=== PATIENT | male | born 1965 | race Caucasian/White ===

== ENCOUNTER 2019-07-13 11:05 | Inpatient (IN) | payer BC, MEDICARE ==
[~2019-07-13] VITALS: Ht 175.3 cm; Wt 84.1 kg
[~2019-07-13 11:05] MED LIST: CARSR60C PO; FLEC50TA10 PO
[2019-07-13 12:17] LABS: BASOPHILS % (AUTO) 0.2 % (0-1); EOSINOPHILS % (AUTO) 0 % (0-6); HEMATOCRIT 46.4 % (42.0-52.0); LYMPHOCYTES # (AUTO) 0.1 X10'3 (1.1-4.8); MEAN CORPUSCULAR HEMOGLOBIN 32.6 PG (27.0-31.0); MEAN CORPUSCULAR HGB CONC 34.4 g/dL (33.0-36.5); MEAN CORPUSCULAR VOLUME 94.7 FL (78-98); MEAN PLATELET VOLUME 7.5 FL (7.4-10.4); MONOCYTES # (AUTO) 0.1 X10'3 (0-0.9); MONOCYTES % (AUTO) 1.9 % (2-12); NEUTROPHILS # (AUTO) 6.3 X10'3 (1.8-7.7); NEUTROPHILS % (AUTO) 95.9 % (42-75); PLATELET COUNT 100 X10'3 (140-440); RED CELL DISTRIBUTION WIDTH 12.7 % (11.5-14.5); WHITE BLOOD COUNT 6.6 X10'3 (4.5-11.0)
[2019-07-13 12:29] LABS: ALANINE AMINOTRANSFERASE 44 U/L (12-78); ALBUMIN 3.4 G/DL (3.4-5.0); ALBUMIN/GLOBULIN RATIO 0.8 (1.1-1.5); ALKALINE PHOSPHATASE 68 IU/L (46-116); ANION GAP 10 (8-16); ASPARTATE AMINO TRANSFERASE 39 U/L (10-37); BILIRUBIN,TOTAL 3.2 MG/DL (0.1-1.0); BLOOD UREA NITROGEN 13 MG/DL (7-18); BUN/CREATININE RATIO 12.7 (5.4-32.0); CALCIUM 8.7 MG/DL (8.5-10.1); CHLORIDE 102 MMOL/L (99-107); CREATININE 1.02 MG/DL (0.60-1.10); GLUCOSE 124 MG/DL (70-104); LIPASE 66 U/L (73-393); SODIUM 136 MMOL/L (135-145); TOTAL PROTEIN 7.7 G/DL (6.4-8.2); eGFR 76 ML/MIN
[2019-07-13 12:37] LABS: CLARITY,URINE SLIGHTLY CLOUDY (Clear); COLOR,URINE AMBER (Yellow); GLUCOSE, URINE NEGATIVE (Neg); KETONES,URINE 15 mg/dl (Neg); LEUKOCYTE ESTERASE ,URINE NEGATIVE (Neg); NITRITES, URINE NEGATIVE (Neg); OCCULT BLOOD,URINE MODERATE (Neg); PROTEIN,URINE 100 mg/dl (Neg); UROBILINOGEN,URINE >=8.0 E.U/dL (0.2-1.0)
[2019-07-13 12:43] LABS: UA COLLECTION TYPE CLN CATCH MIDSTREAM
[2019-07-13 12:45] LABS: MUCUS STRANDS MANY /LPF (Neg); SQUAMOUS EPITHELIAL CELL,UR FEW /LPF (FEW); TRANSITIONAL EPI CELLS,URINE FEW /HPF
[2019-07-13 12:46] LABS: BACTERIA,URINE NONE SEEN /HPF (Neg); RBC,URINE 20-50 /HPF (0-2); RENAL CELLS, URINE FEW /HPF; WBC,URINE 0-4 /HPF (0-4)
[2019-07-13 12:47] LABS: C-REACTIVE PROTEIN 31.62 MG/DL (0.0-0.5); POTASSIUM 3.6 MMOL/L (3.5-5.1)
[2019-07-13] MEDS ORDERED: normal saline 1000ML IV soln IVB ONE (13:10)
[2019-07-13] MEDS ORDERED: iohexol 300mg/ml 100ml inj. ONE (13:39)
[2019-07-13] MEDS ORDERED: ondansetron/PF 4mg/2ml inj IV ONE (13:55)
[2019-07-13] MEDS ORDERED: vancomycin/NS 1 GM ADD-VANTAGE 250 ML IV ONE (15:00)
[2019-07-13] MEDS ORDERED: piperacillin/tazo 3.375gm/50ml 50 ML IV ONE (15:00)
[2019-07-13] MEDS ORDERED: ringers solution, lactated 1000ml IV soln IV ONE (15:00)
[2019-07-13] MEDS ORDERED: NO HOME MEDS (15:34)
[2019-07-13] MEDS ORDERED: magnesium hydroxide 30ml (MOM) UD suspension PO PRN (16:00)
[2019-07-13] MEDS ORDERED: magnesium 4gm in 100ml NS 100 ML IV PRN (16:00)
[2019-07-13] MEDS ORDERED: diphenhydrAMINE 50 mg/ml inj IV PRN (16:00)
[2019-07-13] MEDS ORDERED: HYDROcodone/acetaminophen 5mg/325mg tablet PO PRN (16:00)
[2019-07-13] MEDS ORDERED: diphenhydrAMINE 25mg capsule PO PRN (16:00)
[2019-07-13] MEDS ORDERED: bisacodyl 10mg suppository rectal RC PRN (16:00)
[2019-07-13] MEDS ORDERED: metoclopramide 5 mg/ml inj IV PRN (16:00)
[2019-07-13] MEDS ORDERED: acetaminophen 325mg tablet PO PRN ×2 (16:00)
[2019-07-13] MEDS ORDERED: magnesium 2GM in 50ml NS 50 ML IV PRN (16:00)
[2019-07-13] MEDS ORDERED: potassium Cl 20 mEq SR tablet PO PRN (16:00)
[2019-07-13] MEDS ORDERED: morphine 2 MG/ML inj. syringe IV PRN ×2 (16:00)
[2019-07-13] MEDS: piperacillin/tazo 3.375gm/50ml 50 ML IV SCH ×2 (16:00→23:20)
[2019-07-13] MEDS ORDERED: acetaminophen 650mg rectal suppository RC PRN (16:00)
[2019-07-13] MEDS ORDERED: magnesium Cl slow-release 64mg tablet PO PRN (16:00)
[2019-07-13] MEDS ORDERED: mag hydrox/Alum hydrox/simeth 30ml oral suspension PO PRN (16:00)
[2019-07-13] MEDS ORDERED: potassium CL 10mEq/100ml bag 100 ML IV PRN ×2 (16:00)
[2019-07-13] MEDS ORDERED: morphine 4 MG/ML inj SYRINge IV ONE (16:05)
[2019-07-13] MEDS: HYDROcodone/acetaminophen 10/325mg tab PO PRN ×2 (16:28→23:30)
[2019-07-13 16:29] LABS: HEMOGLOBIN A1C 5.1 % (4.5-6.2)
[2019-07-13] MEDS: dextrose 5%-normal saline 1,000 ML IV SCH ×2 (17:54→23:20)
--- NOTE | 2019-07-13 18:00 | NUR ---
Problems reprioritized. Patient report given, questions answered & plan of care reviewed with DENA Kirk.
[2019-07-13 18:10] VITALS: BP 119/78
--- NOTE | 2019-07-13 18:22 | NUR ---
Received report from DENA Marcelo. Patient awake and alert on room air, in no apparent distress. Call light and items of frequent use within reach. Will continue to monitor.
--- NOTE | 2019-07-13 18:25 | NUR ---
MD Colleen at bedside.
[2019-07-13] MEDS: K and/or MAG REPLACEMENT MC SCH (19:05)
[2019-07-13] MEDS: heparin, porcine 5000 units/ml vial SQ SCH (19:33)
[2019-07-13] MEDS: pantoprazole 40 MG vial IV SCH (19:33)
[2019-07-13 20:00] VITALS: BP 100/61
[2019-07-13] MEDS ORDERED: temazepam 15mg capsule PO PRN (21:00)
[2019-07-14] VITALS: BP 94/61
[2019-07-14] MEDS: VANCOmycin 1250MG/NS 250ml Bag 250 ML IV SCH ×2 (03:33→15:10)
--- NOTE | 2019-07-14 06:08 | NUR ---
Problems reprioritized. Patient report given, questions answered & plan of care reviewed with DENA Zuleta.
--- NOTE | 2019-07-14 06:08 | NUR ---
Patient in room [facility]. I have received report from DENA CARMICHAEL and had the opportunity to ask questions and assume patient care.
[2019-07-14 06:27] LABS: ALANINE AMINOTRANSFERASE 32 U/L (12-78); ALBUMIN 2.4 G/DL (3.4-5.0); ALBUMIN/GLOBULIN RATIO 0.8 (1.1-1.5); ALKALINE PHOSPHATASE 56 IU/L (46-116); ANION GAP 4 (8-16); ASPARTATE AMINO TRANSFERASE 27 U/L (10-37); BILIRUBIN,TOTAL 1.8 MG/DL (0.1-1.0); BLOOD UREA NITROGEN 12 MG/DL (7-18); BUN/CREATININE RATIO 12.2 (5.4-32.0); CALCIUM 7.9 MG/DL (8.5-10.1); CHLORIDE 108 MMOL/L (99-107); CHOL/HDL RATIO 3.3 (0.00-4.99); CHOLESTEROL 100 MG/DL (0-200); CREATININE 0.98 MG/DL (0.60-1.10); GLUCOSE 115 MG/DL (70-104); HDL CHOLESTEROL 30 MG/DL (35-60); LDL CHOLESTEROL 56 MG/DL (50-100); PHOSPHORUS 1.8 MG/DL (2.3-4.5); POTASSIUM 3.9 MMOL/L (3.5-5.1); SODIUM 139 MMOL/L (135-145); TOTAL CARBON DIOXIDE 27.4 MMOL/L (24-32); TOTAL PROTEIN 5.5 G/DL (6.4-8.2); TRIGLYCERIDES 77 MG/DL (20-135); eGFR 80 ML/MIN
[2019-07-14 06:59] LABS: PLATELET ESTIMATE DECREASED; TOTAL CELLS COUNTED 100
[2019-07-14 07:00] VITALS: BP 126/81
[2019-07-14] MEDS: pantoprazole 40 MG vial IV SCH (07:39)
[2019-07-14] MEDS: heparin, porcine 5000 units/ml vial SQ SCH (07:40)
[2019-07-14] MEDS: piperacillin/tazo 3.375gm/50ml 50 ML IV SCH ×3 (07:40→23:10)
[2019-07-14] MEDS ORDERED: clindamycin 600mg/D5W 50ml 50 ML IV SCH (08:00)
[2019-07-14] MEDS: K and/or MAG REPLACEMENT MC SCH ×2 (08:00→19:01)
[2019-07-14] MEDS: ondansetron/PF 4mg/2ml inj IV PRN ×3 (08:03→19:38)
[2019-07-14] MEDS: HYDROcodone/acetaminophen 10/325mg tab PO PRN ×2 (08:05→19:39)
[2019-07-14 08:15] LABS: BASOPHILS % (AUTO) 0.3 % (0-1); EOSINOPHILS % (AUTO) 0.5 % (0-6); HEMATOCRIT 35.6 % (42.0-52.0); HEMOGLOBIN 12.4 g/dl (14.0-17.9); LYMPHOCYTES # (AUTO) 0.4 X10'3 (1.1-4.8); LYMPHOCYTES % (AUTO) 8.4 % (21-51); MEAN CORPUSCULAR HEMOGLOBIN 32.6 PG (27.0-31.0); MEAN CORPUSCULAR HGB CONC 34.7 g/dL (33.0-36.5); MONOCYTES # (AUTO) 0.3 X10'3 (0-0.9); MONOCYTES % (AUTO) 7.2 % (2-12); NEUTROPHILS % (AUTO) 83.6 % (42-75); PLATELET COUNT 73 X10'3 (140-440); RED BLOOD COUNT 3.79 X10'6 (4.70-6.10); RED CELL DISTRIBUTION WIDTH 13.1 % (11.5-14.5); WHITE BLOOD COUNT 4.8 X10'3 (4.5-11.0)
[2019-07-14 11:24] VITALS: BP 92/53
[2019-07-14] MEDS: dextrose 5%-normal saline 1,000 ML IV SCH ×3 (12:04→23:10)
--- NOTE | 2019-07-14 15:23 | NUR ---
POSITIVE BLOOD CULTURE, GRAM NEGATIVE RODS IN [place]]EROBIC BOTTLE, DETECTED AT 27 HOURS FROM LEFT ARM DRAWN ON 07/13/2019 VISIT NUMBER [id number], CALLED DR ORDONEZ AWAITING CALL BACK
--- NOTE | 2019-07-14 15:52 | NUR ---
POSITIVE BLOOD CULTURE, GRAM NEGATIVE RODS IN AEROBIC BOTTLE, DETECTED AT 23.18 HOURS FROM LEFT AC DRAWN ON 07/13/2019. VISIT NUMBER [id number]. PAGED DR ORDONEZ AWAITING CALL BACK
--- NOTE | 2019-07-14 18:20 | NUR ---
Problems reprioritized. Patient report given, questions answered & plan of care reviewed with DENA CARMICHAEL.
[2019-07-14] MEDS: lactobacillus rhamnosus 10,000 MMU CELLS/CAPSULE PO SCH (19:38)
[2019-07-14 20:00] VITALS: BP 127/82
[2019-07-15] VITALS: BP 107/71
[2019-07-15] MEDS: VANCOmycin 1250MG/NS 250ml Bag 250 ML IV SCH (03:26)
[2019-07-15] MEDS: ondansetron/PF 4mg/2ml inj IV PRN ×3 (03:31→18:57)
[2019-07-15] MEDS: HYDROcodone/acetaminophen 10/325mg tab PO PRN ×2 (03:31→11:03)
[2019-07-15 04:01] LABS: EOSINOPHILS # (AUTO) 0.1 X10'3 (0-0.9); MEAN PLATELET VOLUME 7.9 FL (7.4-10.4); WHITE BLOOD COUNT 5.2 X10'3 (4.5-11.0)
[2019-07-15 04:03] LABS: BASOPHILS % (AUTO) 0.6 % (0-1); HEMATOCRIT 37.6 % (42.0-52.0); HEMOGLOBIN 12.9 g/dl (14.0-17.9); LYMPHOCYTES # (AUTO) 0.6 X10'3 (1.1-4.8); LYMPHOCYTES % (AUTO) 12.6 % (21-51); MEAN CORPUSCULAR HEMOGLOBIN 32.5 PG (27.0-31.0); MEAN CORPUSCULAR HGB CONC 34.3 g/dL (33.0-36.5); MEAN CORPUSCULAR VOLUME 94.6 FL (78-98); MONOCYTES # (AUTO) 0.6 X10'3 (0-0.9); MONOCYTES % (AUTO) 12.1 % (2-12); NEUTROPHILS # (AUTO) 3.8 X10'3 (1.8-7.7); NEUTROPHILS % (AUTO) 73.7 % (42-75); PLATELET COUNT 91 X10'3 (140-440); RED BLOOD COUNT 3.97 X10'6 (4.70-6.10); RED CELL DISTRIBUTION WIDTH 13.3 % (11.5-14.5)
[2019-07-15 04:14] LABS: ALANINE AMINOTRANSFERASE 29 U/L (12-78); ALBUMIN 2.4 G/DL (3.4-5.0); ALBUMIN/GLOBULIN RATIO 0.7 (1.1-1.5); ALKALINE PHOSPHATASE 67 IU/L (46-116); ANION GAP 8 (8-16); ASPARTATE AMINO TRANSFERASE 21 U/L (10-37); BILIRUBIN,TOTAL 1.9 MG/DL (0.1-1.0); BLOOD UREA NITROGEN 17 MG/DL (7-18); BUN/CREATININE RATIO 13.3 (5.4-32.0); CALCIUM 8.3 MG/DL (8.5-10.1); CHLORIDE 110 MMOL/L (99-107); CREATININE 1.28 MG/DL (0.60-1.10); GLUCOSE 120 MG/DL (70-104); MAGNESIUM 2.3 MG/DL (1.5-2.4); PHOSPHORUS 2.3 MG/DL (2.3-4.5); POTASSIUM 3.2 MMOL/L (3.5-5.1); SODIUM 144 MMOL/L (135-145); TOTAL CARBON DIOXIDE 26.1 MMOL/L (24-32); TOTAL PROTEIN 5.8 G/DL (6.4-8.2); eGFR 59 ML/MIN
--- NOTE | 2019-07-15 06:14 | NUR ---
Problems reprioritized. Patient report given, questions answered & plan of care reviewed with DENA Anderson.
[2019-07-15 07:00] VITALS: BP 112/78
[2019-07-15] MEDS: piperacillin/tazo 3.375gm/50ml 50 ML IV SCH ×2 (09:26→16:58)
[2019-07-15] MEDS: lactobacillus rhamnosus 10,000 MMU CELLS/CAPSULE PO SCH ×2 (09:26→20:02)
[2019-07-15] MEDS: pantoprazole 40 MG vial IV SCH (09:26)
[2019-07-15] MEDS: K and/or MAG REPLACEMENT MC SCH ×2 (09:26→20:09)
[2019-07-15] MEDS: potassium Cl 20 mEq SR tablet PO PRN ×2 (09:27→20:02)
[2019-07-15] MEDS: dextrose 5%-normal saline 1,000 ML IV SCH ×2 (11:03→20:04)
[2019-07-15 12:00] VITALS: BP 120/79
[2019-07-15] MEDS ORDERED: VANCOMYCIN LEVEL IV ONE (14:30)
[2019-07-15] MEDS: HYDROmorphone 1 mg/ml syringe IV PRN (18:57)
[2019-07-15 19:00] VITALS: BP 121/82
[2019-07-16] VITALS: BP 111/75
[2019-07-16] MEDS: potassium Cl 20 mEq SR tablet PO PRN ×3 (00:02→20:15)
[2019-07-16] MEDS: piperacillin/tazo 3.375gm/50ml 50 ML IV SCH ×3 (00:03→16:02)
[2019-07-16] MEDS: HYDROmorphone 1 mg/ml syringe IV PRN ×4 (00:07→20:13)
[2019-07-16] MEDS: dextrose 5%-normal saline 1,000 ML IV SCH ×4 (04:24→22:20)
[2019-07-16 05:40] LABS: BASOPHILS % (AUTO) 0.4 % (0-1); EOSINOPHILS # (AUTO) 0.1 X10'3 (0-0.9); EOSINOPHILS % (AUTO) 2.5 % (0-6); HEMATOCRIT 33.1 % (42.0-52.0); HEMOGLOBIN 11.5 g/dl (14.0-17.9); LYMPHOCYTES # (AUTO) 1.1 X10'3 (1.1-4.8); LYMPHOCYTES % (AUTO) 22.2 % (21-51); MEAN CORPUSCULAR HGB CONC 34.8 g/dL (33.0-36.5); MEAN CORPUSCULAR VOLUME 94.6 FL (78-98); MEAN PLATELET VOLUME 7.7 FL (7.4-10.4); MONOCYTES # (AUTO) 0.8 X10'3 (0-0.9); MONOCYTES % (AUTO) 16.5 % (2-12); NEUTROPHILS # (AUTO) 2.8 X10'3 (1.8-7.7); NEUTROPHILS % (AUTO) 58.4 % (42-75); PLATELET COUNT 110 X10'3 (140-440); RED BLOOD COUNT 3.49 X10'6 (4.70-6.10); RED CELL DISTRIBUTION WIDTH 13.1 % (11.5-14.5); WHITE BLOOD COUNT 4.8 X10'3 (4.5-11.0)
[2019-07-16 06:07] LABS: ALANINE AMINOTRANSFERASE 36 U/L (12-78); ALBUMIN 2.2 G/DL (3.4-5.0); ALBUMIN/GLOBULIN RATIO 0.7 (1.1-1.5); ALKALINE PHOSPHATASE 87 IU/L (46-116); ANION GAP 6 (8-16); ASPARTATE AMINO TRANSFERASE 38 U/L (10-37); BILIRUBIN,TOTAL 2.3 MG/DL (0.1-1.0); BLOOD UREA NITROGEN 20 MG/DL (7-18); BUN/CREATININE RATIO 17.2 (5.4-32.0); CALCIUM 7.8 MG/DL (8.5-10.1); CHLORIDE 113 MMOL/L (99-107); CREATININE 1.16 MG/DL (0.60-1.10); GLUCOSE 114 MG/DL (70-104); MAGNESIUM 2.3 MG/DL (1.5-2.4); PHOSPHORUS 2.2 MG/DL (2.3-4.5); POTASSIUM 3.4 MMOL/L (3.5-5.1); SODIUM 146 MMOL/L (135-145); TOTAL CARBON DIOXIDE 26.7 MMOL/L (24-32); TOTAL PROTEIN 5.5 G/DL (6.4-8.2); eGFR 66 ML/MIN
[2019-07-16] MEDS: ondansetron/PF 4mg/2ml inj IV PRN ×3 (06:46→20:10)
[2019-07-16 08:00] VITALS: BP 122/78
[2019-07-16] MEDS: K and/or MAG REPLACEMENT MC SCH ×2 (08:00→19:45)
[2019-07-16] MEDS: lactobacillus rhamnosus 10,000 MMU CELLS/CAPSULE PO SCH ×2 (09:15→20:15)
[2019-07-16] MEDS: pantoprazole 40 MG vial IV SCH (09:15)
[2019-07-16 12:00] VITALS: BP 125/87
--- NOTE | 2019-07-16 18:30 | NUR ---
Patient in room [facility]. I have received report from OSIRIS FERNANDES and had the opportunity to ask questions and assume patient care.
[2019-07-16] MEDS ORDERED: magnesium Cl slow-release 64mg tablet PO PRN (18:55)
[2019-07-16] MEDS ORDERED: potassium Cl 20 mEq SR tablet PO PRN (18:55)
[2019-07-16 20:00] VITALS: BP 119/75
[2019-07-17] VITALS: BP 118/78
[2019-07-17] MEDS: piperacillin/tazo 3.375gm/50ml 50 ML IV SCH ×4 (00:06→23:55)
[2019-07-17] MEDS: potassium Cl 20 mEq SR tablet PO PRN (01:10)
[2019-07-17] MEDS: HYDROmorphone 1 mg/ml syringe IV PRN ×5 (01:13→23:57)
[2019-07-17] MEDS: ondansetron/PF 4mg/2ml inj IV PRN ×3 (05:45→23:53)
[2019-07-17] MEDS: dextrose 5%-normal saline 1,000 ML IV SCH ×3 (05:50→22:27)
[2019-07-17 06:10] LABS: BASOPHILS % (AUTO) 0.5 % (0-1); EOSINOPHILS # (AUTO) 0.2 X10'3 (0-0.9); EOSINOPHILS % (AUTO) 2.9 % (0-6); HEMATOCRIT 31.6 % (42.0-52.0); HEMOGLOBIN 11.1 g/dl (14.0-17.9); LYMPHOCYTES # (AUTO) 1.4 X10'3 (1.1-4.8); LYMPHOCYTES % (AUTO) 24.3 % (21-51); MEAN CORPUSCULAR HEMOGLOBIN 32.9 PG (27.0-31.0); MEAN CORPUSCULAR VOLUME 93.8 FL (78-98); MEAN PLATELET VOLUME 7.6 FL (7.4-10.4); MONOCYTES # (AUTO) 0.8 X10'3 (0-0.9); MONOCYTES % (AUTO) 13.6 % (2-12); NEUTROPHILS # (AUTO) 3.4 X10'3 (1.8-7.7); NEUTROPHILS % (AUTO) 58.7 % (42-75); PLATELET COUNT 130 X10'3 (140-440); RED BLOOD COUNT 3.37 X10'6 (4.70-6.10); RED CELL DISTRIBUTION WIDTH 13.2 % (11.5-14.5); WHITE BLOOD COUNT 5.7 X10'3 (4.5-11.0)
--- NOTE | 2019-07-17 06:28 | NUR ---
Problems reprioritized. Patient report given, questions answered & plan of care reviewed with OSIRIS FERNANDES.
[2019-07-17 06:32] LABS: ALANINE AMINOTRANSFERASE 74 U/L (12-78); ALBUMIN 2.2 G/DL (3.4-5.0); ALBUMIN/GLOBULIN RATIO 0.7 (1.1-1.5); ALKALINE PHOSPHATASE 134 IU/L (46-116); ANION GAP 4 (8-16); ASPARTATE AMINO TRANSFERASE 74 U/L (10-37); BILIRUBIN,TOTAL 1.9 MG/DL (0.1-1.0); BLOOD UREA NITROGEN 16 MG/DL (7-18); CALCIUM 7.9 MG/DL (8.5-10.1); CHLORIDE 110 MMOL/L (99-107); CREATININE 1.07 MG/DL (0.60-1.10); GLUCOSE 117 MG/DL (70-104); PHOSPHORUS 2.8 MG/DL (2.3-4.5); POTASSIUM 3.5 MMOL/L (3.5-5.1); SODIUM 143 MMOL/L (135-145); TOTAL CARBON DIOXIDE 29.2 MMOL/L (24-32); TOTAL PROTEIN 5.3 G/DL (6.4-8.2); eGFR 72 ML/MIN
[2019-07-17] MEDS: pantoprazole 40 MG vial IV SCH (07:29)
[2019-07-17 08:00] VITALS: BP 118/79
[2019-07-17] MEDS: K and/or MAG REPLACEMENT MC SCH ×2 (08:00→20:00)
[2019-07-17] MEDS: lactobacillus rhamnosus 10,000 MMU CELLS/CAPSULE PO SCH ×2 (08:00→19:28)
[2019-07-17 12:00] VITALS: BP 123/84
--- NOTE | 2019-07-17 18:30 | NUR ---
Patient in room [facility]. I have received report from OSIRIS FERNANDES and had the opportunity to ask questions and assume patient care.
[2019-07-17 20:00] VITALS: BP 107/68
[2019-07-18] VITALS: BP 125/75
[2019-07-18 05:17] LABS: BASOPHILS % (AUTO) 0.7 % (0-1); EOSINOPHILS # (AUTO) 0.3 X10'3 (0-0.9); HEMATOCRIT 34.3 % (42.0-52.0); HEMOGLOBIN 11.9 g/dl (14.0-17.9); LYMPHOCYTES # (AUTO) 1.8 X10'3 (1.1-4.8); LYMPHOCYTES % (AUTO) 24.6 % (21-51); MEAN CORPUSCULAR HEMOGLOBIN 32.4 PG (27.0-31.0); MEAN CORPUSCULAR HGB CONC 34.7 g/dL (33.0-36.5); MEAN CORPUSCULAR VOLUME 93.4 FL (78-98); MEAN PLATELET VOLUME 7.3 FL (7.4-10.4); MONOCYTES # (AUTO) 0.8 X10'3 (0-0.9); MONOCYTES % (AUTO) 11.2 % (2-12); NEUTROPHILS # (AUTO) 4.3 X10'3 (1.8-7.7); NEUTROPHILS % (AUTO) 59.5 % (42-75); PLATELET COUNT 205 X10'3 (140-440); RED BLOOD COUNT 3.67 X10'6 (4.70-6.10); RED CELL DISTRIBUTION WIDTH 12.9 % (11.5-14.5); WHITE BLOOD COUNT 7.3 X10'3 (4.5-11.0)
[2019-07-18] MEDS: dextrose 5%-normal saline 1,000 ML IV SCH (05:35)
[2019-07-18 05:43] LABS: ALANINE AMINOTRANSFERASE 89 U/L (12-78); ALBUMIN 2.5 G/DL (3.4-5.0); ALBUMIN/GLOBULIN RATIO 0.8 (1.1-1.5); ALKALINE PHOSPHATASE 151 IU/L (46-116); ANION GAP 6 (8-16); ASPARTATE AMINO TRANSFERASE 65 U/L (10-37); BILIRUBIN,TOTAL 1.8 MG/DL (0.1-1.0); BLOOD UREA NITROGEN 8 MG/DL (7-18); BUN/CREATININE RATIO 8.2 (5.4-32.0); CALCIUM 8.3 MG/DL (8.5-10.1); CHLORIDE 106 MMOL/L (99-107); CREATININE 0.97 MG/DL (0.60-1.10); GLUCOSE 106 MG/DL (70-104); MAGNESIUM 1.9 MG/DL (1.5-2.4); POTASSIUM 3.2 MMOL/L (3.5-5.1); SODIUM 141 MMOL/L (135-145); TOTAL CARBON DIOXIDE 29.4 MMOL/L (24-32); TOTAL PROTEIN 5.8 G/DL (6.4-8.2); eGFR 81 ML/MIN
--- NOTE | 2019-07-18 06:30 | NUR ---
Problems reprioritized. Patient report given, questions answered & plan of care reviewed with JOSIAH FERNANDES.
[2019-07-18 07:00] VITALS: BP 132/84
[2019-07-18] MEDS: pantoprazole 40 MG vial IV SCH (07:50)
[2019-07-18] MEDS: piperacillin/tazo 3.375gm/50ml 50 ML IV SCH (07:50)
[2019-07-18] MEDS: lactobacillus rhamnosus 10,000 MMU CELLS/CAPSULE PO SCH (07:50)
[2019-07-18] MEDS: ondansetron/PF 4mg/2ml inj IV PRN (07:59)
[2019-07-18] MEDS: HYDROmorphone 1 mg/ml syringe IV PRN (07:59)
[2019-07-18] MEDS: K and/or MAG REPLACEMENT MC SCH (08:45)
[2019-07-18] MEDS: potassium Cl 20 mEq SR tablet PO PRN (08:50)
[2019-07-18 11:00] VITALS: BP 121/79
[2019-07-18] MEDS ORDERED: METR-159 PO (13:19)
[2019-07-18] MEDS ORDERED: LACT1CAP26 PO (13:19)
[2019-07-18] MEDS ORDERED: LEVO750T46 PO (13:19)
[2019-07-18] MEDS ORDERED: PANT40TA4 PO (13:19)
--- NOTE | 2019-07-18 14:15 | NUR ---
Patient stable for discharge, belongings gathered and sent home with patient. PIV removed, cannula intact. Discharge instructions given and sent home with patient.
--- NOTE | 2019-07-18 14:52 | NUR ---
Prior to patient discharging RD attempted bedside visit with patient however pt unavailable. Written diverticulitis nutrition therapy education with a list of fiber content in foods and RD contact information left at patient's bedside. Will remain available. Addendum: 07/18/19 at [address] Amended: Links added.
== END 2019-07-18 14:22 | disposition home or self-care (01) | DRG 872 ==
LOC: ER 11:05 → ED HOLD 15:59 → SUR 3N 17:25
PROVIDERS: ADMIT Family Medicine; ATTEND Family Medicine
PROC: BW211ZZ Computerized Tomography (CT Scan) of Abdomen and Pelvis using Low Osmolar Contrast (ICD-10-PCS; principal; 2019-07-13)
DX: A41.9 Sepsis, unspecified organism (principal); K57.32 Diverticulitis of large intestine without perforation or abscess without bleeding; K63.2 Fistula of intestine; N17.9 Acute kidney failure, unspecified; E87.6 Hypokalemia; B96.20 Unspecified Escherichia coli [E. coli] as the cause of diseases classified elsewhere; I48.91 Unspecified atrial fibrillation; I80.9 Phlebitis and thrombophlebitis of unspecified site; R79.82 Elevated C-reactive protein (CRP); N28.1 Cyst of kidney, acquired; Z90.49 Acquired absence of other specified parts of digestive tract
CPT/HCPCS: 36415; 71045; 74177; 76937; 80053; 80061; 80202; 81001; 83036; 83605; 83690; 83735; 84100; 84145; 85025; 86140; 86885; 86900; 86901; 87040; 87077; 87081; 87186; 96361; 96365; 96368; 96375; 97116; 97161; 97530; 99291; C9113; G0378; J1170; J1644; J2270; J2405; J2543; J2765; J3370; J3490; J7030; J7042; J7120; Q9967